=== PATIENT | male | born 1965 | race African-American/Black ===

== ENCOUNTER 2023-09-25 11:13 | Emergency (ER) | payer SELFPAY ==
[~2023-09-25] VITALS: Ht 170.2 cm; Wt 65.0 kg
[2023-09-25 11:15] VITALS: TEMP 98; O2SAT 99
[2023-09-25] MEDS: HYDROCODONE/ACETAMINOPHEN 5/325MG TABLET PO ONE (12:06)
[2023-09-25] MEDS ORDERED: IBUP-2029 MT (12:16)
[2023-09-25 12:36] VITALS: BP 120/80; PULSE 70; RESP 15
== END 2023-09-25 13:22 | disposition home or self-care (01) ==
LOC: ER 11:38
DX: M25.561 Pain in right knee (principal)
CPT/HCPCS: 73562; 99283; Z7610 ×4; L1830